=== PATIENT | female | born 1965 | race Hispanic/Latino ===

== ENCOUNTER 2022-06-03 14:19 | Emergency (ER) | payer SELFPAY ==
[2022-06-03] MEDS ORDERED: NA CHLORIDE 0.9% 1,000 ML ONE (14:55)
[2022-06-03] MEDS ORDERED: KETOROLAC 30 MG/ML INJ ONE (14:55)
[2022-06-03] MEDS ORDERED: ONDANSETRON 4 MG/2 ML VIAL ONE (14:55)
[2022-06-03 15:10] LABS: Urine Bacteria None Seen /HPF (<20); Urine Crystals Unidentified Few /HPF (None Seen); Urine Mucus 2+ /HPF (None Seen); Urine RBC >50 /HPF (None Seen); Urine WBC Clump Few /HPF (None Seen)
[2022-06-03 15:11] LABS: Absolute Lymphocytes (CBC) 0.7 K/uL (0.7-4.9); Hematocrit 39.3 % (36.0-45.0); Lymphocytes % 6.8 % (15.3-44.8); MCV 85.8 fL (80-100); MPV 7.7 fL (7.6-11.3); RBC Red Blood Cell Count 4.58 M/uL (3.86-4.86)
[2022-06-03 15:24] LABS: Bilirubin Total 0.9 mg/dL (0.2-1.0); Potassium 3.6 mmol/L (3.5-5.1); Protein, Total 8.1 g/dL (6.4-8.2)
--- NOTE | 2022-06-03 15:37 | RAD REPORT ---
EXAM DESCRIPTION: US - Abdomen Exam Limited - 06/03/2022 3:24 pm CLINICAL HISTORY: ABD PAIN COMPARISON: No comparisons FINDINGS: The gallbladder demonstrates no gallstones. No pericholecystic fluid or gallbladder wall t hickening. The common bile duct is normal measuring 2 millimeter in caliber. The liver demonstrates no findings of intrahepatic biliary dilatation. IMPRESSION: No acute findings on right upper quadrant ultrasound.
[2022-06-03 16:47] LABS: Blood Morphology Comment NOT SEEN (NOT SEEN); Platelet Estimate ADEQ
--- NOTE | 2022-06-03 17:17 | RAD REPORT ---
EXAM DESCRIPTION: CT - Abdomen Pelvis W Contrast - 06/03/2022 4:52 pm CLINICAL HISTORY: Right-sided abdominal pain radiating to the back. Nausea/ vomiting. Chills. COMPARISON: Right upper quadrant ultrasound of the same day TECHNIQUE: Biphasic, helical CT imaging of the abdomen and pelvis was performed following intravenou s administration of 95 mL Isovue 300. All CT scans are performed using dose optimization technique as appropriate and may include automated exposure control or mA/KV adjustment according to patient size. FINDINGS: No suspicious findings in the lung bases. Bibasilar platelike atelectatic changes. The liver, spleen, and pancreas show no suspicious findings. Gallbladder and biliary tree are also wi thout suspicious finding. Bilateral staghorn calculi, larger on the left, largest measuring 3.8 centimeter. At least moderate r ight hydronephrosis. Mild right perinephric edema. 11 millimeter obstructing calculus at or slightly distal to the level of the right pelviureteric junction. Left renal collecting system is not dilated. Incidentally noted fluid density medially right mid pole 2.4 centimeter cyst. No dilated bowel loops or bowel wall thickening. No free air, free fluid or inflammatory stranding. N o hernia, mass or bulky lymphadenopathy. The urinary bladder is without significant finding. No suspicious bony findings. IMPRESSION: At least moderate right hydronephrosis. Obstructing 11 millimeter at or slightly distal to the level of the right pelviureteric junction. Bilateral staghorn calculi, larger on the left. Other incidental findings as above. The findings were communicated to Reena Silvestre on 06/03/2022 at 17:10 hours.
[2022-06-03 18:27] LABS: SARS-CoV-2 Antigen Rapid Res Negative (Negative)
--- NOTE | 2022-06-03 18:30 | EDPHYS ---
Physician Documentation [facility] Name: Malorie Zavala Age: 56 yrs Sex: Female : 1965 Arrival Date: 06/03/2022 Time: 14:22 Bed 20 Private MD: ED Physician Enrique Buckner HPI: 06/03 17:58 This 56 yrs old Female presents to ER via Ambulatory with complaints of kb Abdominal Pain, Vomiting. 17:58 The patient presents with abdominal pain in the right upper quadrant. Onset: The kb symptoms/episode began/occurred yesterday. The symptoms radiate to the right flank. Associated signs and symptoms: Pertinent positives: nausea and vomiting, chills. The symptoms are described as constant. Modifying factors: The symptoms are alleviated by nothing, the symptoms are aggravated by nothing. Severity of pain: At its worst the pain was moderate in the emergency department the pain is unchanged. The patient has experienced similar episodes in the past, a few times. The patient has not recently seen a physician. Historical: - Allergies: 14:44 No Known Allergies; ph - Immunization history:: Adult Immunizations unknown. - Social history:: Smoking status: Patient denies any tobacco usage or history of. ROS: 17:51 Constitutional: Negative for fever, chills, and weight loss. kb 17:51 Abdomen/GI: Positive for abdominal pain, nausea and vomiting. 17:51 Back: Positive for flank pain, on the right. 17:51 : Positive for hematuria. 17:51 All other systems are negative. Exam: 17:57 Constitutional: This is a well developed, well nourished patient who is awake, alert, kb and in no acute distress. Head/Face: Normocephalic, atraumatic. ENT: Moist Mucous membranes Cardiovascular: Regular rate and rhythm with a normal S1 and S2. No gallops, murmurs, or rubs. No pulse deficits. Respiratory: Respirations even and unlabored. No increased work of breathing. Talking in full sentences Skin: Warm, dry with normal turgor. Normal color. MS/ Extremity: Pulses equal, no cyanosis. Neurovascular intact. Full, normal range of motion. Neuro: Awake and alert, GCS 15, oriented to person, place, time, and situation. Moves all extremities. Normal gait. 17:57 Abdomen/GI: Inspection: abdomen appears normal, Bowel sounds: normal, Palpation: soft, in all quadrants, mild abdominal tenderness, in the right upper quadrant. 17:57 Back: CVA tenderness, that is mild, is noted on the right. Vital Signs: 14:39 BP 121 / 80; Pulse 81; Resp 18; Temp 97.8; Pulse Ox 99% on R/A; Weight 68.04 kg; ph 15:57 BP 124 / 80; Pulse 76; Resp 18; Pulse Ox 100% on R/A; kr3 17:53 BP 134 / 64; Pulse 103; Resp 20; Temp 97.6; Pulse Ox 100% on R/A; mm9 MDM: 14:25 Patient medically screened. 17:19 Data reviewed: vital signs, nurses notes. Discussion of test interpretation with radiology: I had a discussion with radiology regarding a test interpretation. CT results discussed with Dr Eden. 17:50 Differential diagnosis: cholecystitis, Cholelithiasis, non-specific abd pain, kb pancreatitis, Pyelonephritis, Ureterolithiasis, urinary tract infection. Consideration of Admission/Observation Patient will be transferred due to lack of urological services at this facility. Counseling: I had a detailed discussion with the patient and/or guardian regarding: the historical points, exam findings, and any diagnostic results supporting the discharge/admit diagnosis, lab results, radiology results, the need to transfer to another facility, [facility] does not immediately have the required specialist. 17:52 ED course: Patient is a 56-year-old female who presents with right upper quadrant and kb right flank pain that started yesterday. Reports hematuria, nausea, vomiting and chills. Patient has mild right upper quadrant pain and CVA tenderness on exam. Patient's CT reveals obstructing 11 mm stone slightly distal to the level of the right UPJ with moderate right hydronephrosis and perinephric edema. Patient's pain controlled after Toradol. We will transfer patient to [facility] due to lack of urological services at this facility.. 18:25 Management of patient was discussed with the following: Dr Orion Vasquez, urologist at [facility]. Recommends outpatient treatment, no need for transfer at this time. . 06/03 14:36 Order name: CBC with Diff; Complete Time: 16:59 06/03 14:36 Order name: CMP; Complete Time: 15:26 kb 06/03 14:36 Order name: Lipase; Complete Time: 15:26 kb 06/03 14:36 Order name: Urine Microscopic Only; Complete Time: 15:15 kb 06/03 15:14 Order name: Manual Differential; Complete Time: 16:59 EDMS 06/03 14:36 Order name: Abdomen Limited US; Complete Time: 15:41 kb 06/03 14:36 Order name: CT Abd/Pelvis - IV Contrast Only; Complete Time: 17:19 kb 06/03 14:36 Order name: IV Saline Lock; Complete Time: 15:10 kb 06/03 15:16 Order name: Urine Culture EDMS 06/03 17:59 Order name: SARS RAPID; Complete Time: 18:29 kb 06/03 14:36 Order name: Labs collected and sent; Complete Time: 15:10 kb 06/03 14:36 Order name: Urine Dipstick-Ancillary (obtain specimen); Complete Time: 15:08 kb Administered Medications: 15:09 Drug: NS 0.9% 1000 ml Route: IV; Rate: 1 bolus; Site: right antecubital; kr3 21:39 Follow up: Response: No adverse reaction; IV Status: Completed infusion; IV Intake: kr3 1000ml 15:10 Drug: TORadol - (ketorolac) 15 mg Route: IVP; Site: right antecubital; kr3 21:39 Follow up: Response: No adverse reaction kr3 15:10 Drug: Zofran (Ondansetron) 4 mg Route: IVP; Site: right antecubital; kr3 21:39 Follow up: Response: No adverse reaction kr3 Disposition: 06/04 14:32 Co-signature as Attending Physician, Enrique Buckner MD I reviewed the patient's care rt provided by the Advanced Practice Provider and agree with the diagnosis and treatment plan. Disposition Summary: 06/03/22 18:29 Discharge Ordered Location: Home kb Condition: Stable kb Diagnosis - Calculus of kidney with calculus of ureter kb - Unspecified hydronephrosis kb Followup: kb - With: Emergency Department - When: As needed - Reason: Worsening of condition Followup: kb - With: Private Physician - When: 2 - 3 days - Reason: Recheck today's complaints, Continuance of care, Re-evaluation by your physician Discharge Instructions: - Discharge Summary Sheet kb - Kidney Stones, [id number] kb - Dietary Guidelines to Help Prevent Kidney Stones kb Forms: - Medication Reconciliation Form kb - Thank You Letter kb - Antibiotic Education kb - Prescription Opioid Use kb - Work release form kr3 Prescriptions: - Zofran 4 mg Oral Tablet - take 1 tablet by ORAL route every 6 hours As needed; 20 tablet; Refills: 0, kb Product Selection Permitted - Diclofenac Sodium 75 mg Oral tablet,delayed release (DR/EC) - take 1 tablet by ORAL route 2 times per day As needed; 30 tablet; Refills: 0, kb Product Selection Permitted Signatures: Dispatcher [employer] [facility] Reena Silvestre, YANELYC CARCASS WASHER-Ckb Jimbo Bright FNP-C FNP-Cla1 Charlotte Arita, RN RN ph Zenaida Graves RN RN kr3 Enrique Buckner MD MD rt Corrections: (The following items were deleted from the chart) 06/03 15:04 14:54 Urinalysis+U.LAB.BRZ ordered. [facility] 17:56 17:52 ED course: Patient is a 56-year-old female who presents with right upper quadrant kb and right flank pain that started yesterday. Reports hematuria, nausea, vomiting and chills. Patient has mild right upper quadrant pain and CVA tenderness on exam.. kb
--- NOTE | 2022-06-03 18:30 | ER ---
Nurse's Notes [facility] Name: Malorie Zavala Age: 56 yrs Sex: Female : 1965 Arrival Date: 06/03/2022 Time: 14:22 Bed 20 Private MD: Diagnosis: Calculus of kidney with calculus of ureter;Unspecified hydronephrosis Presentation: 06/03 14:39 Chief complaint: Patient states: R sided abdominal pain that radiates to back, ph N/V/chills, normal BM yesterday but states that today she had the urge to have a BM but has been unable to. Coronavirus screen: Vaccine status: Patient reports receiving the 2nd dose of the covid vaccine. Ebola Screen: No symptoms or risks identified at this time. Initial Sepsis Screen: Does the patient meet any 2 criteria? No. Patient's initial sepsis screen is negative. Does the patient have a suspected source of infection? No. Patient's initial sepsis screen is negative. Risk Assessment: Do you want to hurt yourself or someone else? Patient reports no desire to harm self or others. Onset of symptoms was June 03, 2022. 14:39 Method Of Arrival: Ambulatory ph 14:39 Acuity: COCO 3 ph Triage Assessment: 19:30 General: Appears in no apparent distress. uncomfortable, Behavior is calm, cooperative, kr3 appropriate for age. Pain: Complains of pain in abdomen and pelvis. EENT: No signs and/or symptoms were reported regarding the EENT system. Neuro: Level of Consciousness is awake, alert, obeys commands, Oriented to person, place, time, situation. Cardiovascular: Patient's skin is warm and dry. Respiratory: Airway is patent Respiratory effort is even, unlabored, Respiratory pattern is regular, symmetrical. 19:30 GI: No signs and/or symptoms were reported involving the gastrointestinal system. : kr3 No signs and/or symptoms were reported regarding the genitourinary system. Derm: No signs and/or symptoms reported regarding the dermatologic system. Musculoskeletal: No signs and/or symptoms reported regarding the musculoskeletal system. Historical: - Allergies: 14:44 No Known Allergies; ph - Immunization history:: Adult Immunizations unknown. - Social history:: Smoking status: Patient denies any tobacco usage or history of. Screenin:30 [facility] Fall Risk Assessment (Adult) History of falling in the last 3 months, kr3 including since admission No falls in past 3 months (0 pts) Confusion or Disorientation No (0 pts) Intoxicated or Sedated No (0 pts) Impaired Gait No (0 pts) Mobility Assist Device Used No (0 pt) Altered Elimination No (0 pt) Score/Fall Risk Level 0 - 2 = Low Risk Oriented to surroundings, Maintained a safe environment, Educated pt \T\ family on fall prevention, incl call for assistance when getting out of bed, Assessed \T\ reinforced patient's understanding of fall precautions, Hourly rounding (assess needs \T\ fall precautionary measures) done. Abuse screen: Denies threats or abuse. Nutritional screening: No deficits noted. Tuberculosis screening: No symptoms or risk factors identified. Assessment: 15:54 Reassessment: Patient and/or family updated on plan of care and expected duration. Pain kr3 level reassessed. Patient is alert, oriented x 3, equal unlabored respirations, skin warm/dry/pink. Patient states symptoms have improved. Vital Signs: 14:39 BP 121 / 80; Pulse 81; Resp 18; Temp 97.8; Pulse Ox 99% on R/A; Weight 68.04 kg; ph 15:57 BP 124 / 80; Pulse 76; Resp 18; Pulse Ox 100% on R/A; kr3 17:53 BP 134 / 64; Pulse 103; Resp 20; Temp 97.6; Pulse Ox 100% on R/A; mm9 ED Course: 14:22 Patient arrived in ED. as 14:25 Reena Silvestre FNP-C is [facility]. kb 14:25 Enrique Buckner MD is Attending Physician. kb 14:33 Zenaida Graves, KELTON is Primary Nurse. kr3 14:44 Triage completed. ph 14:44 Arm band placed on Patient placed in an exam room, on a stretcher. ph 15:07 Urine collected: clean catch specimen, blood tinged. mm9 15:08 Patient has correct armband on for positive identification. Placed in gown. Bed in low mm9 position. Call light in reach. Side rails up X 1. Warm blanket given. Pulse ox on. NIBP on. 15:08 Urine Microscopic Only Sent. mm9 15:26 Abdomen Limited US In Process Unspecified. EDMS 16:54 CT Abd/Pelvis - IV Contrast Only In Process Unspecified. EDMS 19:30 No provider procedures requiring assistance completed. Inserted saline lock: 22 gauge kr3 in right antecubital area, using aseptic technique. Blood collected. 19:30 IV discontinued, intact, bleeding controlled, No redness/swelling at site. Pressure kr3 dressing applied. Administered Medications: 15:09 Drug: NS 0.9% 1000 ml Route: IV; Rate: 1 bolus; Site: right antecubital; kr3 21:39 Follow up: Response: No adverse reaction; IV Status: Completed infusion; IV Intake: kr3 1000ml 15:10 Drug: TORadol - (ketorolac) 15 mg Route: IVP; Site: right antecubital; kr3 21:39 Follow up: Response: No adverse reaction kr3 15:10 Drug: Zofran (Ondansetron) 4 mg Route: IVP; Site: right antecubital; kr3 21:39 Follow up: Response: No adverse reaction kr3 Medication: 19:33 VIS not applicable for this client. kr3 Intake: 21:39 IV: 1000ml; Total: 1000ml. kr3 Outcome: 18:29 Discharge ordered by MD. morton 19:30 Discharged to home kr3 19:30 Condition: stable 19:30 Discharge instructions given to patient, Instructed on discharge instructions, follow up and referral plans. medication usage, Demonstrated understanding of instructions, follow-up care, medications, Prescriptions given X 2. 19:33 Patient left the ED. kr3 Signatures: Dispatcher [employer] [facility] Reena Silvestre, BENOIT ZUNIGA-Keri Zuñiga Patricia, RN RN Zenaida Graves RN RN kr3 Lulú Jarquin mm9
[2022-06-03 19:48] VITALS: O2SAT 100
[2022-06-03 19:49] VITALS: BP 134/64; TEMP 97.6
== END 2022-06-03 19:33 | disposition home or self-care (01) ==
LOC: ER 14:19
DX: N13.2 Hydronephrosis with renal and ureteral calculous obstruction (principal)
CPT/HCPCS: 36415; 74177; 76705; 80053; 81015; 83690; 85025; 87086; 87088; 87811; 96361; 96374; 96375; 99284; J2405; J7030; Q9967